=== PATIENT | female | born 1995 | race African-American/Black ===

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

== ENCOUNTER 2017-01-01 21:00 | Emergency (ER) | payer SELFPAY ==
--- NOTE | 2017-01-01 21:25 | ED Physician Documentation ---
General Adult - HISTORIAN Historian: patient - HPI Chief Complaint: Skin Rash Timing: still present Context: [id number] Further Comments: yes (Last normal menstrual period was in July, had three days of flow in September and none since. test done yesterday. Patient noticed some clear drainage today. Having some mild low back pain.) - ROS CONST: chills. denies: fever GI/: none. denies: problems urinating, vomiting, nausea - PAST HX Past History: none Other History: none Surgeries/Procedures: other (skin cyst removed) Allergies/Adverse Reactions: Allergies Allergy/AdvReac Type Severity Reaction Status Date / Time No Known Allergies Allergy Verified 01/01/17 21:42 Home Medications: Ambulatory Orders Medication Instructions Recorded NK [NK] 01/01/17 - SOCIAL HX Smoking History: non-smoker Alcohol Use: none Drug Use: none - FAMILY HX Family History: Yes (CHF, CKD, DM) - VITAL SIGNS Vital Signs: Vital Signs Temp Pulse Resp BP Pulse Ox 123/62 12/01/16 18:50 - REVIEWED ASSESSMENTS Nursing Assessment Reviewed: Yes Vitals Reviewed: Yes General Adult Physical Exam - PHYSICAL EXAM GENERAL APPEARANCE: no distress NECK: normal inspection, thyroid normal, supple. No: lymphadenopathy RESPIRATORY: no resp distress, chest non-tender, breath sounds normal. No: wheezes, rales, rhonchi CVS: reg rate & rhythm, heart sounds normal, equal pulses, no murmur ABDOMEN: soft, no organomegaly, normal bowel sounds, no abdominal bruit, no distension, non-tender NEURO: oriented X3, mood/affect nml, cognition normal Discharge Clincal Impression: IUP (intrauterine ), incidental Referrals: Primary Doctor,No [Primary Care Provider] - 2 Days Additional Instructions: Continue with present care. To keep your appointment Monday with software security architect . Home Medications: Ambulatory Orders NK [NK] 01/01/17 Condition: Stable Disposition: HOME, SELF-CARE Decision to Admit: NO Date of Decison to Admit: 01/01/17 Decision Time: 22:13 Female Urogenital Problems - EXAM General Appearance: no acute distress Respiratory: no resp. distress, breath sounds nml. No: wheezes, rales, rhonchi CVS: reg rate & rhythm, heart sounds normal, no murmur Abdomen: soft, non-tender, no organomegaly, no distention, nml bowel sounds. No : guarding, rebound Pelvic: external exam nml, speculum exam nml, vaginal discharge (clear to slightly whitish), enlarged uterus (gravid). No: herpes-like ulcerations, active bleeding, blood in vaginal vault, cerv.motion tenderness, cervical dilation, adnexal tenderness (R), adnexal tenderness (L) Back: non-tender, painless ROM Skin: color nml, no rash Neuro: oriented X3, mood/affect nml, cognition normal
[2017-01-01 22:41] VITALS: BP 123/61
[2017-01-02 05:43] LABS: APPEARANCE,URINE CLEAR (CLEAR); COLOR,URINE YELLOW (YELLOW); OCCULT BLOOD,URINE TRACE-LYSED (NEGATIVE); PH URINE 5.5 (5.0 - 8.0); URINE HCG POSITIVE (NEGATIVE); UROBILINOGEN URINE 0.2 Eu (0.2-1.0)
== END 2017-01-01 22:26 | disposition home or self-care (01) ==
LOC: ED 21:00
DX: Z33.1 Pregnant state, incidental (principal)
CPT/HCPCS: 81002; 81025; 99283

== ENCOUNTER 2017-01-04 18:33 | Emergency (ER) | payer SELFPAY ==
--- NOTE | 2017-01-04 18:58 | ED Physician Documentation ---
General Adult - HISTORIAN Historian: patient - HPI Chief Complaint: General Adult Further Comments: yes (Patient presents with complaint of nausea and vomiting. Reports LMP as September 18, 2016. Patient reports she has not taken a test.) - ROS CONST: no problems EYES/ENT: none CVS/RESP: none GI/: none, vomiting (reported), nausea (reported) MS/SKIN/LYMPH: none NEURO/PSYCH: denies: headache, fainting, dizziness, tingling, numbness, difficulty walking, difficulty with speech, anxiety, depression, other - PAST HX Past History: none Allergies/Adverse Reactions: Allergies Allergy/AdvReac Type Severity Reaction Status Date / Time No Known Allergies Allergy Verified 01/01/17 21:42 Home Medications: Ambulatory Orders Medication Instructions Recorded NK [NK] 01/01/17 - SOCIAL HX Smoking History: non-smoker - FAMILY HX Family History: No - VITAL SIGNS Vital Signs: Vital Signs Temp Pulse Resp BP Pulse Ox 123/61 01/01/17 22:36 - REVIEWED ASSESSMENTS Nursing Assessment Reviewed: Yes Vitals Reviewed: Yes Progress - Progress Progress: Old records reviewed; patient was seen 01/01/17, discharge diagnosis was . Patient states doctor did not tell her she was . Patient signed discharge paperwork. Re-educated, UA with positive HCG. Educated patient on proper use of the Er. "I have Medicaid, it doesn't matter". General Adult Physical Exam - PHYSICAL EXAM GENERAL APPEARANCE: [id number] N EENT: eye inspection normal, ENT inspection normal, pharynx normal, no signs of dehydration, OZZY, no nystagmus, TM's nml RESPIRATORY: no resp distress, chest non-tender, breath sounds normal CVS: reg rate & rhythm, heart sounds normal, equal pulses, no murmur, no gallop , PMI nml, no JVD, no friction rub, 24 SKIN: normal color, warm/dry, NR, INT, PAL, DR NEURO: oriented X3, CN's nml as tested, motor nml, sensation nml, mood/affect nml Discharge Clincal Impression: Qualifiers: Weeks of gestation: unspecified Qualified Code(s): Z34.90 - Encounter for supervision of normal , unspecified, unspecified trimester Referrals: Primary Doctor,No [Primary Care Provider] - 2 Days Additional Instructions: Make an appointment with an [facility] doctor. Start a vitamin No smoking No alcohol No drugs Home Medications: Ambulatory Orders NK [NK] 01/01/17 Condition: Stable Disposition: 01 HOME, SELF-CARE Decision to Admit: NO Decision Time: 18:58
[2017-01-04 19:01] VITALS: BP 124/55
[2017-01-05 05:34] LABS: APPEARANCE,URINE CLEAR (CLEAR); COLOR,URINE AMBER (YELLOW); OCCULT BLOOD,URINE TRACE-INTACT (NEGATIVE); PH URINE 5.5 (5.0 - 8.0)
[2017-01-05 05:35] LABS: URINE HCG POSITIVE (NEGATIVE); UROBILINOGEN URINE 0.2 Eu (0.2-1.0)
== END 2017-01-04 19:00 | disposition home or self-care (01) ==
LOC: ED 18:33
DX: Z34.90 Encounter for supervision of normal pregnancy, unspecified, unspecified trimester (principal)
CPT/HCPCS: 81002; 81025; 99283

== ENCOUNTER 2017-01-09 00:31 | Emergency (ER) | payer SELFPAY ==
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
[2017-01-09 01:36] VITALS: BP 112/84
== END 2017-01-09 01:30 | disposition home or self-care (01) ==
LOC: ED 00:31
DX: E87.8 Other disorders of electrolyte and fluid balance, not elsewhere classified (principal); Z34.90 Encounter for supervision of normal pregnancy, unspecified, unspecified trimester
CPT/HCPCS: 99283

== ENCOUNTER 2017-07-27 06:12 | Emergency (ER) | payer OTHER ==
[2017-07-27 06:35] VITALS: BP 122/63
--- NOTE | 2017-07-27 06:48 | ED Physician Documentation ---
General Adult - HISTORIAN Historian: patient, parent - HPI Stated Complaint: Back Pain Chief Complaint: General Adult Further Comments: yes (22 year old female patient brought in by Mom for evaluation of back pain. Patient states the pain started around 0500; denies contractions. Lost mucus plug 3 days ago. G3, P1; 36 weeks , saw Dr Frye 3 days ago. 09/07/17 - Due date) - ROS CONST: no problems EYES/ENT: none CVS/RESP: none GI/: none MS/SKIN/LYMPH: none NEURO/PSYCH: denies: headache - PAST HX Past History: none Other History: none Allergies/Adverse Reactions: Allergies Allergy/AdvReac Type Severity Reaction Status Date / Time No Known Allergies Allergy Verified 07/27/17 06:35 Home Medications: Ambulatory Orders Medication Instructions Recorded Vit No.124/Iron/FA 1 each PO DAILY 07/27/17 [ Vitamin Tablet] - SOCIAL HX Smoking History: non-smoker - FAMILY HX Family History: No - VITAL SIGNS Vital Signs: Vital Signs Temp Pulse Resp BP Pulse Ox 98 F 100 H 20 122/63 100 07/27/17 06:15 07/27/17 06:15 07/27/17 06:15 07/27/17 06:15 07/27/17 06:15 - REVIEWED ASSESSMENTS Nursing Assessment Reviewed: Yes Vitals Reviewed: Yes Progress - Progress Progress: Reviewed signs and symptoms of labor - patient verbalized understanding. ED Results Lab/Radiology - Orders Orders: ED Orders Category Date Time Status URINALYSIS Routine Lab 07/27/17 06:36 Ordered General Adult Physical Exam - PHYSICAL EXAM GENERAL APPEARANCE: [id number] N EENT: eye inspection normal, OZZY RESPIRATORY: no resp distress, chest non-tender, breath sounds normal CVS: reg rate & rhythm, heart sounds normal, equal pulses, no murmur, no gallop , PMI nml, no JVD, no friction rub, 24 ABDOMEN: soft, no organomegaly, normal bowel sounds, no abdominal bruit, no distension, other ( - 36 weeks; abdomen soft; head down; good movement; FHT 155) BACK: normal inspection, no CVA tenderness SKIN: normal color, warm/dry, NR, INT, PAL, NEURO: oriented X3, CN's nml as tested, motor nml, sensation nml, mood/affect nml Discharge Clincal Impression: and not yet delivered Qualifiers: Trimester: third trimester Qualified Code(s): Z34.93 - Encounter for supervision of normal , unspecified, third trimester Additional Instructions: Tylenol every 4 hours as needed This may be signs of early labor; if you pain increases and you begin to have contractions to [facility] Condition: Stable Disposition: 01 HOME, SELF-CARE Decision to Admit: NO Decision Time: 06:51
[2017-07-27 12:17] LABS: APPEARANCE,URINE CLEAR (CLEAR); COLOR,URINE YELLOW (YELLOW); OCCULT BLOOD,URINE NEGATIVE (NEGATIVE); UROBILINOGEN URINE 0.2 Eu (0.2-1.0)
== END 2017-07-27 06:49 | disposition home or self-care (01) ==
LOC: ED 06:12
DX: Z34.93 Encounter for supervision of normal pregnancy, unspecified, third trimester (principal); R52 Pain, unspecified
CPT/HCPCS: 81002; 99283